=== PATIENT | male | born 1970 | race Caucasian/White ===

== ENCOUNTER 2019-03-04 22:06 | Emergency (ER) | payer OTHER ==
[~2019-03-04] VITALS: Ht 180.3 cm; Wt 77.1 kg
[2019-03-04 22:30] VITALS: BP 156/108
[2019-03-04] MEDS ORDERED: IBUPROFEN 600 MG TABLET PO ONE ×2 (23:23→23:30)
== END 2019-03-05 00:58 | disposition home or self-care (01) ==
LOC: ER 22:10
DX: S40.022A Contusion of left upper arm, initial encounter (principal); S40.021A Contusion of right upper arm, initial encounter; S80.12XA Contusion of left lower leg, initial encounter; S80.11XA Contusion of right lower leg, initial encounter; S30.0XXA Contusion of lower back and pelvis, initial encounter; Y04.8XXA Assault by other bodily force, initial encounter; Y93.89 Activity, other specified; Y92.89 Other specified places as the place of occurrence of the external cause; Y99.8 Other external cause status
CPT/HCPCS: 72220-TC